=== PATIENT | male | born 1995 | race Hispanic/Latino ===

== ENCOUNTER 2020-01-29 12:05 | Emergency (ER) | payer OTHER ==
[2020-01-29] MEDS ORDERED: LIDOCAINE HCL-MPF 1% 2ML VIAL ONE (12:35)
[2020-01-29] MEDS ORDERED: ACETAMINOPHEN 325 MG TAB ONE (12:36)
[2020-01-29] MEDS ORDERED: CEFTRIAXONE SODIUM 1 GM ONE (12:36)
[2020-01-29] MEDS ORDERED: TETANUS/DIPHTHERIA TOXOID [ADULT] 0.5 ML VIAL IM ONE (12:37)
== END 2020-01-29 13:53 | disposition home or self-care (01) ==
LOC: EDH 12:05
DX: S61.432A Puncture wound without foreign body of left hand, initial encounter (principal); X58.XXXA Exposure to other specified factors, initial encounter; Y93.89 Activity, other specified; Y92.89 Other specified places as the place of occurrence of the external cause; Y99.8 Other external cause status
CPT/HCPCS: 73130; 96372; 99283; J0696; J3490; 90714